=== PATIENT | male | born 1965 | race African-American/Black ===

== ENCOUNTER 2018-05-20 18:34 | Emergency (ER) | payer MEDICAID, OTHER ==
[~2018-05-20] VITALS: Ht 182.9 cm; Wt 79.4 kg
[2018-05-20] MEDS ORDERED: cefTRIAXone W LIDOCAINE 1 GM IM IM ONE (19:45)
[2018-05-20] MEDS ORDERED: TETANUS-DIPTH-ACEL PERTUSSIS 0.5ML SYRG IM ONE (19:45)
[2018-05-20] MEDS ORDERED: LIDOCAINE W/ EPINEPHRINE 1% 20ML VIAL SC ONE (19:45)
[2018-05-20] MEDS ORDERED: LIDOCAINE 1% HCL (LOCAL ANESTH.) INJ 20ML MDV ID ONE (19:45)
[2018-05-20] MEDS ORDERED: cefTRIAXone SOD 1,000 MG VL ONE (19:47)
[2018-05-20 22:30] VITALS: BP 126/71
== END 2018-05-20 23:53 | disposition home or self-care (01) ==
LOC: ER 18:38
DX: S01.511A Laceration without foreign body of lip, initial encounter (principal); F17.210 Nicotine dependence, cigarettes, uncomplicated; W18.39XA Other fall on same level, initial encounter; Y93.89 Activity, other specified; Y99.8 Other external cause status; Y92.89 Other specified places as the place of occurrence of the external cause
CPT/HCPCS: 12013; 96372; 99283; J0696; J2001

== ENCOUNTER 2018-05-22 16:25 | Emergency (ER) | payer MEDICAID ==
[~2018-05-22] VITALS: Ht 182.9 cm; Wt 79.4 kg
[2018-05-22 16:44] VITALS: BP 158/103
== END 2018-05-22 17:05 | disposition home or self-care (01) ==
LOC: ER 16:26
DX: S01.511D Laceration without foreign body of lip, subsequent encounter (principal); I10 Essential (primary) hypertension; F17.210 Nicotine dependence, cigarettes, uncomplicated; Z76.0 Encounter for issue of repeat prescription; X58.XXXD Exposure to other specified factors, subsequent encounter